=== PATIENT | female | born 1970 | race African-American/Black ===

== ENCOUNTER → 2016-10-31 | Outpatient (CLI) | payer OTHER ==
[~2016-10-31] MED LIST: BACLOFEN10 MG PO; CELEBREX100 MG PO
== END | disposition home or self-care (01) ==
LOC: CBAR 10:17
DX: Z01.818 Encounter for other preprocedural examination (principal); E66.01 Morbid (severe) obesity due to excess calories
CPT/HCPCS: 36415; 84443; 86677; G0463

== ENCOUNTER → 2016-11-10 | Outpatient (CLI) | payer OTHER ==
--- NOTE | ~2016-11-10 | CR63 ---
[facility] A Service of [facility] & [facility] RADIOLOGY TEXT RESULTS PATIENT: VANESSA ROME LOCATION: [facility] : [birth year] UNIT #: [id number] AGE: [address]: Richardson Loja III, MD SEX: F ORDER DR: [id number] [facility] [address] [place], [place] [address] [id number] O MR#: [id number] Acc #: [id number] NAME: VANESSA ROME : 1970 SEX: F STUDY DATE/TIME: 11/10/2016 8:22 UNIT: [facility] ROOM: STUDY DESCRIPTION: CR Chest 2 View Attending Physician: Richardson Loja III, M.D. Referring Physician: Richardson Loja III, M.D. Ordering Physician: Richardson Loja III, M.D. Primary Care Physician: Ha Wang M.D. MEDICAL IMAGING REPORT This report is preliminary unless electronic signature is present EXAM Chest PA and lateral, 11/10/2016 HISTORY Morbid obesity, preop laparoscopic gastric banding today. FINDINGS There is mild cardiac enlargement. The lungs are clear. There are no pleural effusions. IMPRESSION Mild cardiac enlargement. No active pulmonary disease. Dictated by... Merrick Go M.D. THIS IS AN ELECTRONICALLY VERIFIED REPORT Merrick Go M.D. at 11/10/2016 10:52 AM JOSE/ean TD: 11/10/2016 10:07 JOB #: [id number] MEDICAL IMAGING REPORT Page 1 of 1 COPY
--- NOTE | ~2016-11-10 | CR97 ---
[facility] A Service of [facility] & [facility] RADIOLOGY TEXT RESULTS PATIENT: VANESSA ROME LOCATION: [facility] : 68 UNIT #: [id number] AGE: [address]: Richardson Loja III, MD SEX: F ORDER DR: [id number] [facility] [address] [place], [place] [address] [id number] O MR#: [id number] Acc #: [id number] NAME: VANESSA ROME : 1970 SEX: F STUDY DATE/TIME: 11/10/2016 8:33 UNIT: [facility] ROOM: STUDY DESCRIPTION: CR Esophagram Attending Physician: Richardson Loja III, M.D. Referring Physician: Richardson Loja III, M.D. Ordering Physician: Richardson Loja III, M.D. Primary Care Physician: Ha Wang M.D. MEDICAL IMAGING REPORT This report is preliminary unless electronic signature is present EXAM Esophagram. INDICATIONS Preoperative evaluation for Lap-Band placement. PROCEDURE Patient swallowed barium under fluoroscopy. Total fluoro time 0.3 minutes. A total of 11 images were obtained. COMPARISON STUDIES None FINDINGS No esophageal mass or stricture. No appreciable hiatal hernia. IMPRESSION Negative esophagram. Dictated by... Jhonatan Rodriguez M.D. THIS IS AN ELECTRONICALLY VERIFIED REPORT Jhonatan Rodriguez M.D. at 11/12/2016 9:51 PM NAIBLD/sae TD: 11/10/2016 17:30 JOB #: [id number] MEDICAL IMAGING REPORT Page 1 of 1 COPY
--- NOTE | ~2016-11-10 | EKG ---
PATIENT: VANESSA ROME UNIT #: [id number] Ventricular Rate: 71 BPM Atrial Rate: 71 BPM P-R Interval: 168 ms QRS Duration: 74 ms Q-T Interval: 386 ms QTC Calculation(Bezet): 419 ms P [place]: 74 degrees Calculated R [place]: 43 degrees Calculated T [place]: 55 degrees Diagnosis Line: Normal sinus rhythm Diagnosis Line: Normal ECG Diagnosis Line: No previous ECGs available Diagnosis Line: Confirmed by TARA FERGUSON MD ([id number]) on 11/10/2016 Diagnosis Line: 4:42:29 PM INTERPRETING MD: PHYLLIS MANCIA
[2016-11-10 09:52] LABS: MEAN CELL VOLUME 79.1 FL (83-96); MEAN CORPUSCULAR HEMOGLOBIN 24.8 PG (28-34); MEAN CORPUSCULAR HGB CONC 31.3 g/dL (30-36); MEAN PLATELET VOLUME 8.4 FL (6.5-11.5); RED BLOOD COUNT 6.07 X10e (3.90-5.30); RED CELL DISTRIBUTION WIDTH 16.8 % (11.0-15.5); WHITE BLOOD COUNT 7.2 X10e3 (4.0-10.5)
[2016-11-10 10:25] LABS: ALBUMIN SERUM 4.3 g/dL (3.5-5.0); BILIRUBIN,TOTAL 0.5 mg/dL (0.2-2.0); BUN/CREATININE RATIO 21.42; CALCIUM SERUM 10.1 mg/dL (8.4-10.2); CREATININE SERUM 0.7 mg/dL (0.6-1.4); GLOM FILT RATE Estimated 119.6 mL/min (>60); POTASSIUM 4.7 mmol/L (3.5-5.1); PROTEIN TOTAL SERUM 7.5 g/dL (6.0-8.3)
== END | disposition home or self-care (01) ==
LOC: CRAD 08:04
PROVIDERS: Surgery
DX: Z01.818 Encounter for other preprocedural examination (principal); I51.7 Cardiomegaly
CPT/HCPCS: 36415; 71020; 74220; 80053; 80061; 84443; 85027; 93005

== ENCOUNTER → 2016-11-22 | Day surgery (SDC) | payer OTHER ==
--- NOTE | ~2016-11-22 | CR7 ---
[facility] A Service [facility] RADIOLOGY TEXT RESULTS PATIENT: VANESSA ROME LOCATION: [facility] : 68 UNIT #: [id number] AGE: [address]: Richardson Loja III, MD SEX: F ORDER DR: [id number] [address] [address] [id number] O MR#: [id number] Acc #: [id number] NAME: VANESSA ROME : 1970 SEX: F STUDY DATE/TIME: 11/22/2016 11:19 UNIT: [facility] ROOM: STUDY DESCRIPTION: CR Abdomen Single AP View Attending Physician: Richardson Loja III, M.D. Ordering Physician: Richardson Loja III, M.D. Primary Care Physician: Generic Doctor Not In System MEDICAL IMAGING REPORT This report is preliminary unless electronic signature is present EXAM KUB Date: 11/22/2016 HISTORY Status post laparoscopic gastric banding procedure today. Abdominal pain. COMPARISON Esophagram 11/10/2016. FINDINGS Gastric band device has been placed at which is slightly below the expected location of the esophagogastric junction. The tube extends to the left lower quadrant the abdomen with insufflation port over the left lower abdomen. The phi angle of the lap-band is approximate 66.4 degrees. There is nonspecific nonobstructive bowel gas pattern. Suspected retained enteric contrast within the sigmoid diverticular outpouchings. Heart size appears mildly enlarged. There is lower lumbar facet arthropathy, there is multilevel lower thoracic spine osteophyte formation eccentrically to the right. IMPRESSION Satisfactory postoperative appearance status post gastric band placement. Phi angle approximates 66.4 degrees. Dictated by... [facility] A Service [facility] RADIOLOGY TEXT RESULTS PATIENT: VANESSA ROME LOCATION: [facility] : 68 UNIT #: [id number] AGE: [address]: Richardson Loja III, MD SEX: F ORDER DR: Jenni Devine M.D. THIS IS AN ELECTRONICALLY VERIFIED REPORT Jenni Devine M.D. at 11/23/2016 7:04 AM BETITO/yamini TD: 11/22/2016 13:27 JOB #: [id number] MEDICAL IMAGING REPORT Page 1 of 1 COPY
--- NOTE | ~2016-11-22 | OR ---
Unit #: [id number] #: [id number] Patient: VANESSA ROME [id number] [facility] [address] [place], [place] [address] [id number] O MR#: [id number] NAME: VANESSA ROME ROOM: Date of Procedure: 11/22/2016 Admission Date: 11/22/2016 Surgeon: Richardson Loja III, M.D. : 1970 Attending Physician: Richardson Loja III, M.D. OPERATIVE REPORT PREOPERATIVE DIAGNOSIS Chronic morbid obesity. POSTOPERATIVE DIAGNOSIS Chronic morbid obesity. SECONDARY DIAGNOSIS Anterior paraesophageal hernia. PROCEDURE PERFORMED Laparoscopic adjustable gastric banding (AP standard with low-profile port) and laparoscopic paraesophageal hernia repair. DUMPER Kaleb Mo M.D. SPECIMENS None. COMPLICATIONS None apparent. ESTIMATED BLOOD LOSS Minimal. INDICATIONS FOR PROCEDURE This is a 46-year-old lady, who has chronic morbid obesity with a BMI of 52 and no major associated comorbidities. She has been through the bariatric program at [facility] and understands risks and benefits of the procedure. DESCRIPTION OF PROCEDURE After consent was obtained, including the risks and benefits of slippage, erosion, port dysfunction, and possible failure of weight loss due to noncompliance, the patient was taken to the operating room and placed in the supine position. General anesthetic was administered and the abdomen was prepped and draped in standard surgical fashion. I began by making a 2 cm incision just above and to the left of the umbilicus. I used a Visiport to enter the peritoneal cavity without any difficulty. C02 pneumoperitoneum was then established. Next, I placed a 5 mm port in the right upper quadrant, a 5 mm Valarie liver retractor in Unit #: [id number] #: [id number] Patient: VANESSA ROME the subxiphoid region to provide exposure of the gastroesophageal junction. Next, a 10 mm port was placed in the left upper quadrant and a 5 mm port was placed in the left lateral subcostal region. I began by performing an examination of the GE junction to evaluate for a hiatal hernia. We then scored the peritoneal attachments overlying the angle of His. I then opened up the clear space in the gastrohepatic ligament, and then using 2 blunt graspers, I identified the small fat pad crossing over the right crura. I swept the fat anterior to the crura off the crura and using the pars flaccida, I created a retrogastric tunnel where the blunt grasper exited at the angle of His. Once I had made this tunnel safely, I then inserted an Allergan AP band into the abdominal cavity. This adjustable gastric band was then place around the upper part of the stomach and fastened and buckled anteriorly. We then tacked the lateral fundus over the band to the proximal pouch with 2 interrupted 0 Ethibond sutures. I then used a third stitch to imbricate the excess anterior stomach by going from the lesser curvature up towards where the last stitch was placed. We then had excellent hemostasis. I removed the Valarie liver retractor. We then removed the port tubing through the initial port incision. The rest of the ports were removed, and the pneumoperitoneum was released. I then left a small tail on the tubing. We then attached the port to the excess band tubing. We placed a piece of Prolene mesh along the back side of the port and used a Prolene stitch to anchor this mesh in place. We then trimmed the excess mesh so that just a small footprint of mesh was in place behind the port. I then inserted the tubing back into the abdominal cavity, and we placed the port into a small pocket that was made just inferior to where our initial port incision was made. The mesh was in direct contact with the fascia, and this will scar in place to hold the port in place. We then injected all the port sites with 0.25% plain Marcaine, and I reapproximated the skin edges with interrupted 4-0 Vicryl subcuticular sutures. Steri-strips were then applied. The patient tolerated the procedure without any problems and returned to the recovery room in stable condition. ADDENDUM After exposure of the GE junction, the patient was noted to have a small to medium size anterior paraesophageal hernia. I scored the phrenoesophageal ligament, reduced the hernia defect and after identifying both the right and left crura, I reapproximated the defect with an interrupted 0 Ethibond [id number]-lh-[id number] suture. I then proceeded with the case as listed above. Dictated by... Richardson Loja III, M.D. VCL/danna TD: 11/23/2016 07:55 JOB #: [id number] CC: Estefany Rangel M.D. Unit #: [id number] #: [id number] Patient: VANESSA ROME OPERATIVE REPORT Page 1 of 1 X Richardson Loja III, MD X PROCEDURE OPERATIVE NOTE
== END | disposition home or self-care (01) ==
LOC: CSUR 08:00
DX: E66.01 Morbid (severe) obesity due to excess calories (principal); K44.9 Diaphragmatic hernia without obstruction or gangrene; G89.29 Other chronic pain; M54.9 Dorsalgia, unspecified; F17.210 Nicotine dependence, cigarettes, uncomplicated; Z68.43 Body mass index [BMI] 50.0-59.9, adult; Z79.1 Long term (current) use of non-steroidal anti-inflammatories (NSAID); Z79.2 Long term (current) use of antibiotics; Z90.710 Acquired absence of both cervix and uterus
CPT/HCPCS: 74000; C1781; J0330; J0690; J1650; J1885; J2250; J2405; J3010

== ENCOUNTER → 2017-01-10 | Outpatient (CLI) | payer OTHER ==
--- NOTE | ~2017-01-10 | CR97 ---
[facility] A Service of [facility] & [facility] RADIOLOGY TEXT RESULTS PATIENT: VANESSA ROME LOCATION: [facility] : 69 UNIT #: [id number] AGE: [address]: Richardson Loja III, MD SEX: F ORDER DR: [id number] [facility] [address] [place], [place] [address] [id number] O MR#: [id number] Acc #: [id number] NAME: VANESSA ROME : 1970 SEX: F STUDY DATE/TIME: 01/10/2017 12:28 UNIT: [facility] ROOM: STUDY DESCRIPTION: CR Esophagram Attending Physician: Richardson Loja III, M.D. Referring Physician: Richardson Loja III, M.D. Ordering Physician: Richardson Loja III, M.D. Primary Care Physician: Ha Wang M.D. MEDICAL IMAGING REPORT This report is preliminary unless electronic signature is present EXAM Esophagram. INDICATION Lap-Band procedure performed in early November, for the 72 hours, patient has been having mid-chest pain while swallowing liquids and left shoulder pain. FINDINGS The preliminary brand marketing coordinator film and spot image with fluoro shows the Lap-Band in good position with an angle of 54 degrees off vertical through the spine. I gave the patient one large swallow of thin barium and obtained multiple AP images. The esophagus appeared normal. The Lap-Band device is noted and barium does pass through it slowly and fills the stomach. The proximal small pouch is normal in caliber and is not overly distended. The patient did experience discomfort with that swallow. Fluoro time was 0.6 minutes. There are 8 flow images and 1 overhead image. IMPRESSION 1. The esophagram shows the Lap-Band device in good position. I believe that the rate in which the barium passes through the Lap-Band device is within normal limits, and the proximal pouch is normal in caliber. 2. The patient did experience discomfort between her breasts with the swallow of barium for this study. Dictated by... Maurice Adkins M.D. THIS IS AN ELECTRONICALLY VERIFIED REPORT Maurice Adkins M.D. at 01/11/2017 7:04 AM JUSTICE/aleksandar TD: 01/10/2017 17:07 [facility] A Service of [facility] & [facility] RADIOLOGY TEXT RESULTS PATIENT: [facility] LOCATION: [facility] #: [id number] : [birth year] UNIT #: [id number] AGE: [address]: Richardson Loja III, MD SEX: F ORDER DR: JOB #: [id number] MEDICAL IMAGING REPORT Page 1 of 1 COPY
== END | disposition home or self-care (01) ==
LOC: CRAD 10:30
DX: R13.10 Dysphagia, unspecified (principal)
CPT/HCPCS: 74220